=== PATIENT | female | born 1980 | race Caucasian/White ===

== ENCOUNTER 2022-03-26 21:39 | Emergency (ER) | payer MEDICAID ==
[~2022-03-26] VITALS: Ht 157.5 cm; Wt 85.6 kg
[2022-03-26 21:45] VITALS: BP 173/97
[2022-03-26 23:05] LABS: BASOPHILS % 0.4 % (0.0-2.0); HEMATOCRIT. 36.5 % (36.0-48.0); HEMOGLOBIN. 12.3 g/dL (12.0-16.0); LYMPHOCYTES % 34.9 % (20.0-50.0); MEAN CORPUSCULAR HEMOGLOBIN 25.7 pg (28.0-32.0); MEAN CORPUSCULAR VOLUME 76.4 fL (81.0-99.0); MEAN PLATELET VOLUME 8.1 fl (7.4-10.4); MONOCYTES % 5.9 % (2.0-8.0); NEUTROPHILS % 56.8 % (40.0-76.0); PLATELET 361 x1000/uL (130-400); RED BLOOD CELL COUNT 4.78 mill/uL (4.2-5.4); RED CELL DISTRIBUTION WIDTH 15.8 % (11.6-14.6)
[2022-03-26 23:10] LABS: CHLORIDE 106 mEq/L (98-107)
[2022-03-26 23:11] LABS: PROTHROMBIN TIME 10.3 sec (9.6-11.0)
== END 2022-03-27 01:44 | disposition home or self-care (01) ==
LOC: ER 21:43
DX: R07.89 Other chest pain (principal)
CPT/HCPCS: 36415; 71045; 80053; 84484; 85025; 93005; 99285